=== PATIENT | female | born 1990 | race American Indian/Alaskan Native ===

== ENCOUNTER 2017-03-03 14:16 | Emergency (ER) | payer MEDICAID, OTHER ==
[2017-03-03 15:17] VITALS: BP 109/74
[2017-03-03 15:40] LABS: HCG Qualitative,Urine Positive (Negative)
[2017-03-03 15:41] LABS: Bilirubin,Urine NEG (Negative); Blood,Urine NEG (Negative); Color,Urine Yellow (Yellow); Mucus,Urine FEW /HPF; Nitrite,Urine NEG (Negative); Protein,Urine <15 mg/dL mg/dL (Negative); WBC,Urine < 1.0 /HPF (0.0-6.0)
== END 2017-03-03 20:47 | disposition left against medical advice (07) ==
LOC: ED 14:16
DX: M79.1 Myalgia (principal); R05 Cough; Z53.21 Procedure and treatment not carried out due to patient leaving prior to being seen by health care provider
CPT/HCPCS: 81001; 81025; 87400

== ENCOUNTER 2017-03-03 21:11 | Emergency (ER) | payer MEDICAID ==
[2017-03-03 23:15] VITALS: BP 114/72
--- NOTE | 2017-03-04 00:53 | Emergency Department Report ---
HPI - General Chief Complaint: Upper Respiratory Infection Time Seen by Provider: 03/04/17 00:32 - HPI HPI: Patient was called back to the emergency room because she came to the emergency room report that she has flulike symptoms with headache, nausea fever body aches and chills. Denies any vomiting or diarrhea. Patient states that she is 16 weeks and she is followed by [facility] and had an care. She is not having any related complication. Patient left at approximately 7:30 PM without lead in the nursing staff know. I checked her lab work and saw that her test was positive and she was positive for influenza B. I Called patient via cell phone and it went to her voicemail so I called family member number that was listed on paperwork and requested that they inform patient that is very imperative that she comes back to the emergency room. Patient return to the emergency room. Patient said that she is eating and drinking well she just feels nauseated at times. Denies any vaginal bleed or discharge. Denies any abdominal pain or back pain. Denies any neck pain or stiffness. She says she has slight headache only with coughing. Generalize a can at 6-10. Denies any exposure to the flu. When asked, baby is moving adequately per mom. Patient reports that she's been having symptoms for 6 days. ED Past Medical Hx - Past Medical History Previous Medical History?: No - Surgical History Past Surgical History?: No - Family History Family history: no significant - Social History Smoking Status: Never Smoker Substance Use Type: None Other Social History: Patient is at 16 weeks - Medications Home Medications: Home Medications Medication Instructions Recorded Confirmed Last Taken Type Tablet 1 tab PO DAILY 03/03/17 03/03/17 Unknown History Acetaminophen 500 mg PO Q8H PRN 4 Days #12 tablet 03/04/17 Unknown Rx Oseltamivir [Tamiflu] 75 mg PO BID 5 Days #10 cap 03/04/17 Unknown Rx ED Review of Systems ROS: Stated complaint: CALL BACK Other details as noted in HPI Comment: All other systems reviewed and negative Constitutional: chills, fever Eyes: denies: eye discharge ENT: congestion. denies: ear pain, throat pain Respiratory: cough. denies: orthopnea, shortness of breath, SOB with exertion, SOB at rest, stridor, wheezing Cardiovascular: denies: chest pain, palpitations, dyspnea on exertion, orthopnea , edema, syncope, paroxysmal nocturnal dyspnea Gastrointestinal: nausea. denies: abdominal pain, vomiting, diarrhea, constipation, hematemesis, melena, hematochezia Genitourinary: denies: urgency, dysuria, frequency, hematuria, discharge, abnormal menses, dyspareunia Musculoskeletal: myalgia. denies: back pain, joint swelling, arthralgia Skin: denies: rash Neurological: headache. denies: weakness, numbness, paresthesias, confusion, abnormal gait, vertigo Physical Exam - Physical Exam Vital Signs: Vital Signs 03/03/17 23:11 Temperature 98.7 F Pulse Rate 100 H Respiratory 16 Rate Blood Pressure 114/72 O2 Sat by Pulse 100 Oximetry Vital Signs 03/03/17 03/04/17 23:11 01:02 Temperature 98.7 F Pulse Rate 100 H Respiratory 16 18 Rate Blood Pressure 114/72 O2 Sat by Pulse 100 Oximetry General: This is a 26-year-old female well-nourished well-developed in no acute distress. Patient does not look sick and she is nontoxic in appearance. She said not the bedside conversation with her friend. Physical Exam: Head: Normocephalic, atraumatic, no abrasion, no bruising and no contusion. Eyes: Biateral pupils equal and reactive to light, bilateral EOM intact.. Bilateral conjunctival and sclera without injection, normal accommodation. No nystagmus Mouth: Moist, no pharyngeal exudate or erythema. No peritonsillar abscesses. Uvula is midline and oral airways patent. Ears: TM congested without erythema. Bilateral EAC without any redness swelling or drainage. No mastoid bone tenderness Nose: Bilateral nasal turbinates congested without erythema and clear drainage. Maxillary and frontal sinuses Non-tender to palpate. Neck: Supple, No Cervical adenopathy, full range of motion and no C-spine tenderness. No swelling or tracheal deviation normal reflexes Cardiovascular: S1, S2. Regular rate and rhythm. No murmur. Capillary refill is less then 3 seconds. Lungs: Clear to auscultate bilaterally. No rhonchi, wheezes or rales. No chest wall tenderness. No chest contusion. No bruising to chest. Dry cough MSK: Strength 5/5 in all extremities. No joint deformity or crepitus. Normal inspection. Full range of motion to all extremities. No laceration, abrasion or ecchymotic area noted. Patient able to fully flex and extend bilateral knees without any difficulties. Bilateral knees nontender to palpate. Abdomen: Non-tender to palpate in all quadrants, no guarding or rebound tenderness, positive bowel sounds in all quadrants. No CVA tenderness. No hernia, bruit or mass. No rigidity or distention. Extremities: No clubbing, cyanosis or edema. +2 pulses. No neurovascular compromise Skin: Clean, dry and intact. No rash or lesions. Neurological: GCS at 15, Pt is alert and oriented 3 speech is clear . 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 Normal gait. Negative Romberg and no pronator drift. Normal Reflexes. No motor or sensory deficit Back: No vertebral tenderness, no paraspinal tenderness. The bend over and touch his toes without any difficulties. Ambulates without any difficulties. Psych: Normal mood and behavior ED Course Vital Signs 03/03/17 23:11 Temperature 98.7 F Pulse Rate 100 H Respiratory 16 Rate Blood Pressure 114/72 O2 Sat by Pulse 100 Oximetry Vital Signs 03/03/17 03/04/17 23:11 01:02 Temperature 98.7 F Pulse Rate 100 H Respiratory 16 18 Rate Blood Pressure 114/72 O2 Sat by Pulse 100 Oximetry - Reevaluation(s) Reevaluation #1: 03/04/17 02:18 Patient tolerated oral liquids in the emergency room without any difficulties. She was given Tylenol 975 mg for body ache and Zofran 4 mg ODT for nausea. Patient reports that babies move in normally and she is not having any related issues. Patient orally challenge and emergency room with apple juice that she tolerated well without vomiting. ED Medical Decision Making - Lab Data Please see urinalysis results from visit today. Patient had positive ketones of 20 . No infection and positive test Influenza A negative. Influenza B-positive - Medical Decision Making ED course: Patient into the emergency room and left before getting results and treatment. She was called back because her flu test was positive for influenza B. Patient is 16 weeks and she has been followed by [facility] and she is not having any related issues. test positive, baby is moving normally, urinalysis showed positive ketones and patient orally challenging emergency room with apple juice and tolerated well without any vomiting. Urinalysis negative for any bacterial infection. Urine positive for . I discussed with patient her urine, test which she oriented nose that she was and fluid results. I discussed with her that she will need to follow up with her [facility] on 03/06/2017 for call to let her [facility] know that she was in the emergency room and tested positive for the flu. I instructed her that she needs to increase her fluid intake to 2-3 L of water per day. I told her she can take only Tylenol for body aches and/or fever. Patient is afebrile. She is stable. She does not look sick and interacted with her friend throughout this visit. I discussed the patient is needs to continue to take her vitamin and I will prescribe Tylenol plain and, flu. This case was discussed with Dr. Freeman who agrees the plan. Patient discharged home with her friend with prescription for Tylenol and, flu. Patient given printed information from the CDC website on influenza and Critical care attestation.: If time is entered above; I have spent that time in minutes in the direct care of this critically ill patient, excluding procedure time. ED Disposition Clinical Impression: Influenza B, Upper respiratory infection with cough and congestion, Nausea, Body aches Disposition: DC-01 TO HOME OR SELFCARE Is pt being admited?: No Does the pt Need Aspirin: No Condition: Stable Instructions: Influenza (ED), Dehydration (ED), Musculoskeletal Pain (ED), Acute Cough (ED), Upper Respiratory Infection (ED), Oseltamivir (By mouth) Additional Instructions: Please increase her fluid intake to 2-3 L of water per day Flush nostrils with saline nasal spray Take medication as prescribed Follow-up with your [facility] as instructed If his symptoms worsen, return to the emergency room. See printed information in your discharge injection paperwork from [facility] website on influenza in and on Tamiflu Prescriptions: Acetaminophen 500 mg PO Q8H PRN 4 Days #12 tablet PRN Reason: BODYACHE,FEVER Oseltamivir [Tamiflu] 75 mg PO BID 5 Days #10 cap Referrals: PRIMARY CARE, [Primary Care Provider] - 03/06/17 Your, [facility] [Other] - 03/06/17 Forms: Accompanied Note, Work/School Release Form(ED)
[2017-03-04] MEDS ORDERED: TYLENOL PO ONE (00:58)
[2017-03-04] MEDS ORDERED: ZOFRAN ODT PO ONE (00:59)
[2017-03-04] MEDS ORDERED: ZOFRAN ODT ONE (01:00)
[2017-03-04] MEDS ORDERED: TYLENOL ONE (01:01)
== END 2017-03-04 02:53 | disposition home or self-care (01) ==
LOC: ED 21:11
DX: O99.512 Diseases of the respiratory system complicating pregnancy, second trimester (principal); J10.1 Influenza due to other identified influenza virus with other respiratory manifestations; O26.892 Other specified pregnancy related conditions, second trimester; R11.0 Nausea; Z3A.16 16 weeks gestation of pregnancy
CPT/HCPCS: 99282; Q0162